=== PATIENT | male | born 1990 | race Caucasian/White ===

== ENCOUNTER 2016-09-05 13:46 | Emergency (ER) | payer MEDICAID ==
[~2016-09-05] VITALS: Ht 175.3 cm; Wt 68.0 kg
[2016-09-05 14:03] VITALS: BP 116/76
== END 2016-09-05 14:31 | disposition home or self-care (01) ==
LOC: ER 13:47
DX: S00.512A Abrasion of oral cavity, initial encounter (principal); F12.10 Cannabis abuse, uncomplicated; I86.1 Scrotal varices; F20.9 Schizophrenia, unspecified; F17.200 Nicotine dependence, unspecified, uncomplicated; X58.XXXA Exposure to other specified factors, initial encounter; Y93.89 Activity, other specified; Y92.89 Other specified places as the place of occurrence of the external cause; Y99.9 Unspecified external cause status
CPT/HCPCS: A4606; Z7502; Z7610

== ENCOUNTER 2018-03-20 15:22 | Emergency (ER) | payer MEDICAID ==
[~2018-03-20] VITALS: Ht 175.3 cm; Wt 66.7 kg
[2018-03-20 15:36] VITALS: BP 104/73
[2018-03-20] MEDS ORDERED: ACETAMINOPHEN ES 500 MG TABLET ONE (16:51)
[2018-03-20] MEDS ORDERED: ACETAMINOPHEN 325 MG TABLET PO ONE (17:00)
== END 2018-03-20 17:02 | disposition home or self-care (01) ==
LOC: ER 15:22
DX: F12.10 Cannabis abuse, uncomplicated (principal); J02.9 Acute pharyngitis, unspecified; F20.9 Schizophrenia, unspecified

== ENCOUNTER 2018-05-08 09:33 | Emergency (ER) | payer MEDICAID ==
[~2018-05-08] VITALS: Ht 175.3 cm; Wt 68.0 kg
[2018-05-08 09:33] VITALS: BP 125/66
--- NOTE | 2018-05-08 11:08 | NUR ---
JUAN LUIS received a call from Randall in ED requesting for SW to see the pt. due to homelessness. SW went to the ED to see the pt. however, was informed that pt. left the premises.
--- NOTE | 2018-05-08 11:51 | NUR ---
JUAN LUIS received a call back from LESLIE Alexis in ED requesting for SW to comeback to see the pt. Pt. was in the restroom and did not leave the facility. JUAN LUIS met with pt. in ED. Pt. is alert and oriented x 4. Pt. appeared clean and well groomed. Pt. had is backpack and a jacket by his side. Pt. states he is homeless and has been since March 01. Pt. states he was living with his family in [address] and decided to leave his home. Pt. would not disclose as to why he left his home in [address]. Pt. does not speak to his family. Pt. states since March 01 he has been living at the [facility] program at [facility]. Pt. states he will be going back there later for long term for tonight. Pt. receives GR and Food stamps. Pt. was working at [employer] in [place] but is currently unemployed. Pt initially denied any drug use or marijuana use but later stated he smoked marijuana earlier today. Pt. denies any alcohol use. Pt. has a psychiatric diagnosis of Schizophrenia. Currently pt. denies any visual or auditory hallucinations and delusions. Pt. denies suicidal and homicidal ideations. Pt. states he sees his psychiatrist on [facility]. JUAN LUIS gave pt. the [facility] [id number] Winter Nursing Home Program list and [facility] Homeless Resource Directory. JUAN LUIS also encouraged pt. to go to [facility] mental [facility] since they can assist pt. with housing, case management and mental health services. The following resources were given to the pt: Mental Health clinics [facility] Homeless Program [address] [place] [address] Homeless mentally ill people may be seen at [facility] on a walk-in basis. [facility] [place] [address], [address]nd [place] [address] Main Number: [facility] [address] [facility] [place] [address] [facility] [address] [place] [address] Operation Hours: MON - FRI 8:00 a.m. - 5:00 p.m. Walk In Hours: MON - FRI 8:00 a.m. - 5:00 p.m. Services by Age: Adults and Older Adults Healthcare Clinics for Homeless patients [facility] [address] [facility], [address]. [place] Hours: M, T, Th, F 8:30AM-4:30PM Walk-ins allowed Provide medical screening and pharmacy [facility] [address] [facility] [address] [place] [address] Hours M-F 8AM-3:30PM Walk-ins allowed Provide medical screening and pharmacy [facility] [address] [facility] [place] [address] Hours 8AM-4:30PM Walk-ins allowed Provide medical screening and pharmacy Alcohol and Drug Treatment Programs [facility] Substance Abuse Self-helpline ([facility]) Contact number . Call the hotline and the bull chain operator will screen and link individual to an appropriate program. Must have Medi-qian or be Med-qian eligible. [facility] [address] [facility]. [place] [id number] [facility] [address] [facility]. [place] [id number] [facility] Rehabilitation Program (Shinto based) [address] [place] [address] (Six months program and need to work for 8 hrs per day while in treatment) [facility] Emergency Department (No insurance required) [address] [place] [address] Homeless Patient Waiver Form was signed by the pt. and placed in pt's chart. JUAN LUIS requested ESTEVAN Archibald to order lunch for the pt. prior to discharge. JUAN LUIS received TAP card from nursing supervisor dyer Arcelia and gave it to ESTEVAN Archibald to give to the patient. ESTEVAN Archibald, LESLIE Alexis and Dr. Chandler were updated with pt's discharge plan. No other social service needs are requested at this time. SW is available, if needed.
== END 2018-05-08 12:48 | disposition home or self-care (01) ==
LOC: ER 09:36
DX: F12.10 Cannabis abuse, uncomplicated (principal); F20.9 Schizophrenia, unspecified; F17.200 Nicotine dependence, unspecified, uncomplicated; Z59.0 Homelessness
CPT/HCPCS: 99283; A4606; Z7502

== ENCOUNTER 2018-05-09 12:58 | Emergency (ER) | payer MEDICAID, OTHER ==
[~2018-05-09] VITALS: Ht 175.3 cm; Wt 68.0 kg
[2018-05-09 13:13] VITALS: BP 129/63
[2018-05-09] MEDS ORDERED: diphenhydrAMINE HCL 50 MG/ML VIAL IV ONE (13:30)
[2018-05-09] MEDS ORDERED: METOCLOPRAMIDE HCL 10 MG/2 ML VIAL IV ONE (13:30)
[2018-05-09] MEDS ORDERED: IV NS 0.9% 1,000 ML BAG IV ONE (13:30)
[2018-05-09] MEDS ORDERED: KETOROLAC TROMETHAMINE INJ 30 MG/ML VIAL IV ONE (13:30)
[2018-05-09] MEDS ORDERED: METOCLOPRAMIDE HCL 10 MG/2 ML VIAL ONE (13:44)
[2018-05-09] MEDS ORDERED: diphenhydrAMINE HCL 50 MG/ML VIAL ONE (13:44)
[2018-05-09] MEDS ORDERED: KETOROLAC TROMETHAMINE INJ 30 MG/ML VIAL ONE (13:44)
--- NOTE | 2018-05-09 14:09 | NUR ---
JUAN LUIS was informed by ESTEVAN Onofre that pt. who was seen by JUAN LUIS yesterday is back. SW met with pt. bedside. SW had assessed pt. yesterday and given him homeless resources and [facility] referral along with a TAP Card. Pt. is alert and oriented x 4. Pt. recognized SW from yesterday's consult. SW inquired with pt. why did he come to the ER again. Pt. stated, " I am sick." JUAN LUIS reiterated to the pt. to go to one of the list of health clinics that SW had given pt. yesterday instead of coming to ER if it is not an urgent matter. Pt. understood. When SW inquired with pt. where did he go last night for detention, pt. stated he went to the [facility] where he was picked up for overnight detention to [facility]. SW inquired with pt. if he still had the resources that were given to him yesterday. Pt. stated he did and did not need another copy. Pt. states, he will be going back to [facility] located at [address] [place] [address] . Homeless Patient Wavier form was signed by the pt. and placed in pt's chart. JUAN LUIS updated ESTEVAN Onofre regarding pt's discharge plan and requested him to give pt. TAP card upon discharge.
== END 2018-05-09 15:26 | disposition home or self-care (01) ==
LOC: ER 13:01
DX: G43.909 Migraine, unspecified, not intractable, without status migrainosus (principal); F20.9 Schizophrenia, unspecified; F17.200 Nicotine dependence, unspecified, uncomplicated; F12.10 Cannabis abuse, uncomplicated; Z59.0 Homelessness
CPT/HCPCS: J1200; J1885; J2765; J7030

== ENCOUNTER 2018-10-07 17:35 | Emergency (ER) | payer MEDICAID ==
[~2018-10-07] VITALS: Ht 172.7 cm; Wt 69.9 kg
--- NOTE | 2018-10-07 17:48 | NUR ---
patient came in due to "i feel like i have a fever", neck pain denies any injury. Ambulatory with steady gait. On room air, breathing evenly and unlabored. Kept comfortable, will continue to monitor accordingly.
[2018-10-07] MEDS ORDERED: ACETAMINOPHEN ES 500 MG TABLET PO ONE (18:00)
[2018-10-07] MEDS ORDERED: ACETAMINOPHEN ES 500 MG TABLET ONE (18:00)
--- NOTE | 2018-10-07 18:11 | NUR ---
Patient given written and verbal discharge instructions. Patient verbalizes understanding of instructions. Patient is ambulatory with steady gait. Refuses offer of group home placement. Patient given list of available shelters in surrounding area. tap card provided, left with appropriate clothes, given drinks and food.
[2018-10-07 18:12] VITALS: BP 112/67
== END 2018-10-07 18:10 | disposition home or self-care (01) ==
LOC: ER 17:35
DX: F31.9 Bipolar disorder, unspecified (principal); F20.9 Schizophrenia, unspecified; F12.10 Cannabis abuse, uncomplicated; F17.200 Nicotine dependence, unspecified, uncomplicated; Z59.0 Homelessness

== ENCOUNTER 2018-10-11 23:59 | Emergency (ER) | payer MEDICAID ==
--- NOTE | 2018-10-12 00:04 | NUR ---
CALLED TO TRIAGE NO ANSWER
--- NOTE | 2018-10-12 00:22 | NUR ---
PT CALLED AGAIN TO [facility] AND REFUSED TO BE SEEN BY THE MD. PT DECIDED HE WANTS TO LEAVE
== END 2018-10-12 00:27 | disposition left against medical advice (07) ==
LOC: ER 23:59
DX: Z53.21 Procedure and treatment not carried out due to patient leaving prior to being seen by health care provider (principal)

== ENCOUNTER 2019-02-04 17:18 | Emergency (ER) | payer SELFPAY ==
[~2019-02-04] VITALS: Ht 177.8 cm; Wt 72.6 kg
[2019-02-04] MEDS ORDERED: HALOPERIDOL LACTATE INJ 5 MG/ML VIAL ONE (17:25)
[2019-02-04] MEDS ORDERED: MIDAZOLAM HCL 5 MG/5ML VIAL ONE (17:25)
--- NOTE | 2019-02-04 17:25 | NUR ---
SEEN AND EXAMINED BY .
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
[2019-02-04] MEDS ORDERED: MIDAZOLAM HCL 2 MG/2ML VIAL IM ONE (17:30)
[2019-02-04] MEDS ORDERED: HALOPERIDOL LACTATE INJ 5 MG/ML VIAL IM ONE (17:30)
--- NOTE | 2019-02-04 17:40 | NUR ---
IV LINE ESTABLISHED, BLOOD DRAWN AND SENT TO LAB.
[2019-02-04] MEDS ORDERED: TDAP [DIPH/PERTUSSIS/TET] 0.5 ML VIAL IM ONE ×2 (17:42→18:00)
[2019-02-04 17:46] LABS: BASOPHILS # (AUTO) 0.1 /CMM (0.0-0.2); BASOPHILS % (AUTO) 0.8 % (0.0-2.0); EOSINOPHILS % (AUTO) 0.6 % (0.0-6.0); HEMATOCRIT 43 % (39-51); HEMOGLOBIN 14.8 g/dL (13.5-17.5); LYMPHOCYTES # (AUTO) 1.5 /CMM (0.8-4.8); LYMPHOCYTES % (AUTO) 10.7 % (20.0-44.0); MEAN CORPUSCULAR HGB CONC 35 g/dl (31.0-36.0); MEAN CORPUSCULAR VOLUME 87 fL (80-96); MONOCYTES # (AUTO) 0.7 /CMM (0.1-1.30); MONOCYTES % (AUTO) 5.4 % (2.0-12.0); NEUTROPHILS # (AUTO) 11.3 /CMM (1.8-8.9); NEUTROPHILS % (AUTO) 82.5 % (43.0-81.0); PLATELET COUNT (AUTO) 227 /CMM (150-450); RED BLOOD CELL COUNT(AUTO) 4.96 MIL/uL (4.5-6.0); WHITE BLOOD COUNT (AUTO) 13.7 K/uL (4.3-11.0)
[2019-02-04 17:55] LABS: CALCIUM, SERUM 9.4 mg/dL (8.5-10.1); CARBON DIOXIDE 27 mmol/L (21-32); CHLORIDE 105 mmol/L (98-107); GLUCOSE 151 mg/dL (74-106); POTASSIUM 3.5 mmol/L (3.5-5.1); SODIUM SERUM 142 mmol/L (136-145); UREA NITROGEN, BLOOD 17 mg/dL (7-18)
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
[2019-02-04] MEDS ORDERED: MORPHINE SULFATE INJ 2 MG/ML DISP.SYRIN IV ONE (18:00)
[2019-02-04 18:01] LABS: ALANINE AMINOTRANSFERASE 20 U/L (12-78); ALBUMIN 4.6 g/dL (3.4-5.0); ALCOHOL, BLOOD < 3 mg/dL (0-0); ALKALINE PHOSPHATASE 77 U/L (46-116); ASPARTATE AMINOTRANSFERASE 19 U/L (15-37); BILIRUBIN,DIRECT 0.2 mg/dL (0.0-0.2); BILIRUBIN,TOTAL 1.3 mg/dL (0.2-1.0); TOTAL PROTEIN, SERUM 7.9 g/dL (6.4-8.2)
--- NOTE | 2019-02-04 18:17 | NUR ---
PT IS WHEELED TO CT SCAN [facility]IA [facility].
[2019-02-04] MEDS ORDERED: IOHEXOL-300 100 ML VIAL IV ONE (18:20)
--- NOTE | 2019-02-04 18:39 | NUR ---
[employer] AT BEDSIDE.
[2019-02-04] MEDS ORDERED: LIDOCAINE 1%-EPI 1:100,000 20 ML VIAL ONE (18:42)
--- NOTE | 2019-02-04 18:44 | NUR ---
[employer] AT BEDSIDE: NITIN GRIFFITHS [id number] OFFICER BETHANY #[id number]
[2019-02-04] MEDS ORDERED: CEPHALEXIN MONOHYDRATE 500 MG CAPSULE PO ONE ×2 (19:00→19:15)
--- NOTE | 2019-02-04 19:12 | NUR ---
REPORT GIVEN TO ESTEVAN NOLAN FOR SHIRA.
[2019-02-04 20:01] VITALS: BP 146/60
== END 2019-02-04 20:01 | disposition home or self-care (01) ==
LOC: ER 17:21
DX: S31.010A Laceration without foreign body of lower back and pelvis without penetration into retroperitoneum, initial encounter (principal); F12.10 Cannabis abuse, uncomplicated; R45.1 Restlessness and agitation; R47.81 Slurred speech; F20.9 Schizophrenia, unspecified; F17.200 Nicotine dependence, unspecified, uncomplicated; Z59.0 Homelessness; X99.1XXA Assault by knife, initial encounter; Y93.89 Activity, other specified; Y92.89 Other specified places as the place of occurrence of the external cause; Y99.8 Other external cause status
CPT/HCPCS: 12002; 36415; 74177; 80048; 80076; 80307; 85025; 85730; 86850; 90471; 90715; 96372 ×2; 99284; A6403 ×3; J1630; J2250; J3490; Q9967; G0480

== ENCOUNTER 2019-04-10 17:40 | Emergency (ER) | payer SELFPAY ==
[~2019-04-10] VITALS: Ht 177.8 cm; Wt 66.2 kg
[2019-04-10 18:17] VITALS: BP 153/74
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
[2019-04-10] MEDS ORDERED: IBUPROFEN 600 MG TABLET PO ONE ×2 (18:21→18:30)
== END 2019-04-10 18:25 | disposition home or self-care (01) ==
LOC: ER 17:40
DX: S31.010D Laceration without foreign body of lower back and pelvis without penetration into retroperitoneum, subsequent encounter (principal); J02.9 Acute pharyngitis, unspecified; F20.9 Schizophrenia, unspecified; F17.200 Nicotine dependence, unspecified, uncomplicated; Z59.0 Homelessness; X58.XXXD Exposure to other specified factors, subsequent encounter

== ENCOUNTER 2019-04-12 17:17 | Emergency (ER) | payer SELFPAY ==
[~2019-04-12] VITALS: Ht 177.8 cm; Wt 66.2 kg
--- NOTE | 2019-04-12 18:00 | NUR ---
Sore throat x 4 days
[2019-04-12] MEDS ORDERED: ACETAMINOPHEN 325 MG TABLET PO ONE (18:30)
[2019-04-12] MEDS ORDERED: PENICILLIN G BENZATHINE 2.4 MMU/4 ML ML IM ONE ×2 (18:30→18:36)
[2019-04-12] MEDS ORDERED: ACETAMINOPHEN ES 500 MG TABLET ONE (18:36)
--- NOTE | 2019-04-12 18:43 | NUR ---
Patient discharged to home in stable condition. Written and verbal after care instructions given. Patient verbalizes understanding of instruction. Pt ambulated with steady gait. vss.
[2019-04-12 18:44] VITALS: BP 132/62
== END 2019-04-12 18:44 | disposition home or self-care (01) ==
LOC: ER 17:19
DX: J02.9 Acute pharyngitis, unspecified (principal); F10.10 Alcohol abuse, uncomplicated; F17.200 Nicotine dependence, unspecified, uncomplicated; F12.10 Cannabis abuse, uncomplicated; Y90.9 Presence of alcohol in blood, level not specified
CPT/HCPCS: 96372; 99283; J0558

== ENCOUNTER 2019-05-19 10:12 | Emergency (ER) | payer MEDICAID ==
[~2019-05-19] VITALS: Ht 175.3 cm; Wt 68.0 kg
[2019-05-19 10:19] VITALS: BP 109/66
--- NOTE | 2019-05-19 10:20 | NUR ---
patient came in to the er c/o both ear pain x 4 days, on room air, breathing evenly and unlabored. kept comfortable, will continue to monitor accordingly.
--- NOTE | 2019-05-19 10:51 | NUR ---
dr lezama at beside
[2019-05-19] MEDS ORDERED: IBUPROFEN 600 MG TABLET PO ONE ×2 (11:26→11:30)
--- NOTE | 2019-05-19 11:33 | NUR ---
Patient discharged to home in stable condition. Written and verbal after care instructions given. Patient verbalizes understanding of instruction.
== END 2019-05-19 11:33 | disposition home or self-care (01) ==
LOC: ER 10:13
DX: J02.9 Acute pharyngitis, unspecified (principal); F20.9 Schizophrenia, unspecified; F17.200 Nicotine dependence, unspecified, uncomplicated; Z59.0 Homelessness

== ENCOUNTER 2019-05-20 10:54 | Emergency (ER) | payer MEDICAID ==
[~2019-05-20] VITALS: Ht 177.8 cm; Wt 90.7 kg
[2019-05-20 11:01] VITALS: BP 125/81
[2019-05-20] MEDS ORDERED: IBUPROFEN 600 MG TABLET PO ONE ×2 (11:12→11:15)
--- NOTE | 2019-05-20 11:15 | NUR ---
Patient discharged to home in stable condition. Written and verbal after care instructions given. Patient verbalizes understanding of instruction.
== END 2019-05-20 11:16 | disposition home or self-care (01) ==
LOC: ER 10:56
DX: J02.9 Acute pharyngitis, unspecified (principal); Z59.0 Homelessness

== ENCOUNTER 2019-05-21 08:59 | Emergency (ER) | payer MEDICAID ==
[~2019-05-21] VITALS: Ht 177.8 cm; Wt 90.7 kg
[2019-05-21 09:02] VITALS: BP 125/81
[2019-05-21] MEDS ORDERED: IBUPROFEN 600 MG TABLET PO ONE (09:06)
--- NOTE | 2019-05-21 09:12 | NUR ---
ibuprofen 600 mg given as ordered by
--- NOTE | 2019-05-21 09:12 | NUR ---
Patient discharged to home in stable condition. Written and verbal after care instructions given. Patient verbalizes understanding of instruction.
[2019-05-22] MEDS ORDERED: IBUPROFEN 600 MG TABLET PO ONE (13:00)
== END 2019-05-21 09:12 | disposition home or self-care (01) ==
LOC: ER 09:04
DX: J02.9 Acute pharyngitis, unspecified (principal)

== ENCOUNTER 2020-01-30 12:40 | Emergency (ER) | payer MEDICAID ==
--- NOTE | 2020-01-30 12:46 | NUR ---
AGITATED. REFUSING TO ANSWER WHILE BEING TRIAGE.
--- NOTE | 2020-01-30 12:49 | NUR ---
PT STILL AGITATED. CURSING AND VIDEO TAPING ED STAFF. SECURITY CALLED FOR ASSISTANCE. WAS ESCORTED OUT OF ED.
== END 2020-01-30 12:53 | disposition left against medical advice (07) ==
LOC: ER 12:50
DX: J02.9 Acute pharyngitis, unspecified (principal); Z53.21 Procedure and treatment not carried out due to patient leaving prior to being seen by health care provider

== ENCOUNTER 2020-03-12 16:55 | Emergency (ER) | payer MEDICAID ==
[~2020-03-12] VITALS: Ht 177.8 cm; Wt 63.5 kg
[2020-03-12 17:07] VITALS: BP 138/66
[2020-03-12] MEDS ORDERED: IBUPROFEN 600 MG TABLET PO ONE (17:30)
[2020-03-12] MEDS ORDERED: IBUPROFEN 600 MG TABLET ONE (18:25)
--- NOTE | 2020-03-12 18:35 | NUR ---
Patient discharged to home in stable condition. Written and verbal after care instructions given. Patient verbalizes understanding of instruction. Pt ambulatory with a steady gait
--- NOTE | 2020-03-13 19:49 | NUR ---
REC'D COVID POS RESULTS
== END 2020-03-12 18:37 | disposition home or self-care (01) ==
LOC: ER 16:58
DX: U07.1 COVID-19 (principal); R11.2 Nausea with vomiting, unspecified; F20.9 Schizophrenia, unspecified; F17.200 Nicotine dependence, unspecified, uncomplicated
CPT/HCPCS: 71045; 87804; 99284; C9803; U0003